=== PATIENT | male | born 1945 | race Caucasian/White ===

== ENCOUNTER 2021-01-17 18:58 | Emergency (ER) | payer MEDICARE, OTHER ==
--- NOTE | 2021-01-17 19:32 | EDM.PDOC ---
ED HPI GENERAL MEDICAL PROBLEM - General Chief Complaint: ENT Problem Stated Complaint: TOOTH PAIN Time Seen by Provider: 01/17/21 19:31 - History of Present Illness INITIAL COMMENTS - FREE TEXT/NARRATIVE: 75-year-old male presents the emergency room with tooth pain. This started about a day ago seems to go from the back of his jaw radiating up into his ear. He denies any foul taste in his mouth no obvious drainage. Patient saw the dentist not long ago who wants to clean up a few things in that area. Patient denies any potentially traumatic event that could have cracked a tooth. He has not had any fevers or chills has not noticed any facial swelling. Patient does not smoke he is treated for hypertension and hyperlipidemia. - Related Data Allergies Allergy/AdvReac Type Severity Reaction Status Date / Time Penicillins Allergy Hives Verified 01/17/21 19:53 Home Meds: Home Meds Erythromycin Base [Erythromycin] 333 mg PO TID #30 tablet. 01/17/21 [Rx] Hydrocodone/Acetaminophen [HYDROcodone-Acetaminophen 5-325 MG] 1 each PO QID PRN #10 tab 01/17/21 [Rx] Penicillin V Potassium 500 mg PO Q8HR #30 tab 01/17/21 [Rx] ED ROS GENERAL - Review of Systems Review Of Systems: See Below Constitutional: Reports: No Symptoms HEENT: Reports: Dental Pain Respiratory: Reports: No Symptoms Cardiovascular: Reports: No Symptoms GI/Abdominal: Reports: No Symptoms ED EXAM, GENERAL - Physical Exam Exam: See Below Exam Limited By: No Limitations General Appearance: Alert, No Apparent Distress Ears: Normal External Exam, Normal Canal, Hearing Grossly Normal, Normal TMs Nose: Normal Inspection, Normal Mucosa, No Blood Throat/Mouth: Normal Inspection, Normal Lips, Normal Gums, Normal Oropharynx, Normal Voice, No Airway Compromise. No: Normal Teeth (The area of concern is not worsened with palpation no obvious gum erythema or redness noted. This is the left rear lower right in front of the wisdom tooth. This has a crown in front of it and has had some repair to it.) Head: Atraumatic, Normocephalic Neck: No: Lymphadenopathy (L), Lymphadenopathy (R) Respiratory/Chest: No Respiratory Distress, Lungs Clear, Normal Breath Sounds Cardiovascular: Normal Peripheral Pulses, Regular Rate, Rhythm, No Edema Course - Vital Signs Last Recorded V/S: Last Vital Signs Temp 36.1 C 01/17/21 19:29 Pulse 69 01/17/21 19:29 Resp 15 01/17/21 19:29 BP Pulse Ox 97 01/17/21 19:29 - Re-Assessments/Exams Free Text/Narrative Re-Assessment/Exam: 01/17/21 19:47 Patient has follow-up with his dentist coming up this next week I will go and start him on penicillin. 01/17/21 19:58 As it turns out the patient is allergic to penicillin we will start him on erythromycin 333 1 p.o. 3 times daily for 10 days 01/17/21 20:16 Was contacted by [facility] they do not have any oral erythromycin. We will change his prescription to clindamycin 150 mg 4 times daily for 10 days 01/17/21 20:21 The patient was also given a prescription for Peetz 06/23/2024 #10 1 every 6 hours as needed Departure - Departure Time of Disposition: 19:48 Disposition: Home, Self-Care 01 Clinical Impression: Pain, dental - Discharge Information Prescriptions: Erythromycin Base [Erythromycin] 333 mg PO TID #30 tablet. Penicillin V Potassium 500 mg PO Q8HR #30 tab Instructions: Dental Pain Referrals: Andrew Rodriguez MD [Primary Care Provider] - Forms: ED Department Discharge Additional Instructions: Return to the emergency room with any questions problems or worsening symptoms. Follow-up with your dentist as scheduled. I have started you on erythromycin 333 mg take 1 tab 3 times a day for 10 days. Tylenol as needed for discomfort. Sepsis Event Note (ED) - Focused Exam Vital Signs: Vital Signs Temp Pulse Resp Pulse Ox 01/17/21 19:29 36.1 C 69 15 97
== END 2021-01-17 20:13 | disposition home or self-care (01) ==
LOC: JD.ED 18:58
DX: K08.89 Other specified disorders of teeth and supporting structures (principal); Z88.0 Allergy status to penicillin
CPT/HCPCS: 99282